=== PATIENT | female | born 1970 | race Caucasian/White ===

== ENCOUNTER 2019-12-14 12:28 | Emergency (ER) | payer OTHER ==
[~2019-12-14] VITALS: Ht 157.5 cm; Wt 81.7 kg
[~2019-12-14 12:28] MED LIST: EFFEXOR XR150 MG; HYDROCHLOROTHIA25 M1; LORTAB 7.5/5001 TA1 PO; POTASSIUM CHLO10 ME1
[2019-12-14] MEDS ORDERED: LEVO-T75 MCG PO (12:43)
[2019-12-14] MEDS ORDERED: LISINOPRIL2.5 MG PO (12:44)
[2019-12-14] MEDS ORDERED: NORCO 5-325 TA1 EAC1 PO (14:57)
[2019-12-14] MEDS ORDERED: MEDROLDOSEPACK PO (14:57)
[2019-12-14] MEDS ORDERED: MELOXICAM7.5 MG PO (14:57)
[2019-12-14 15:08] VITALS: BP 172/90
== END 2019-12-14 15:09 | disposition home or self-care (01) ==
LOC: M.ERS 12:28
DX: M54.32 Sciatica, left side (principal); E03.9 Hypothyroidism, unspecified

== ENCOUNTER 2020-11-15 19:47 | Emergency (ER) | payer OTHER ==
[~2020-11-15] VITALS: Ht 157.5 cm; Wt 78.5 kg
[~2020-11-15 19:47] MED LIST changes: +EFFEXOR XR75 MG PO; +LEVO-T75 MCG PO; +LISINOPRIL2.5 MG PO; +MEDROLDOSEPACK PO; +MELOXICAM7.5 MG PO; +NORCO 5-325 TA1 EAC1 PO; +PROBIOTIC1 EAC7 PO; +VITAMIN B-1100 M2 PO; +VITAMIN C500 M1 PO; +VITAMIN D3 COM1 EACH PO; +ZESTRIL30 MG PO
[2020-11-15] MEDS ORDERED: FLONASE 0.05%50 MCG NARES (19:59)
[2020-11-15 21:03] LABS: ABSOLUTE BASOPHILS 0.1 thou/uL (0.0-0.2); ABSOLUTE EOSINOPHILS 0.2 thou/uL (0.0-0.7); ABSOLUTE LYMPHOCYTES 1.7 thou/uL (0.8-5.3); ABSOLUTE MONOCYTES 0.6 thou/uL (0.0-1.2); ABSOLUTE NEUTROPHILS 5.7 thou/uL (1.6-8.1); BASOPHILS 0.6 %; EOSINOPHILS 1.9 %; HEMATOCRIT 41.6 % (37.0-47.0); HEMOGLOBIN 14.2 gm/dL (12.0-15.0); LYMPHOCYTES 21.2 %; MCH 32.1 pg (26.0-34.0); MCHC 34.1 g/dL (28.0-37.0); MCV 93.9 fL (80.0-100.0); MONOCYTES 7.2 %; MPV 6.9 fl. (7.2-11.1); NUCLEATED RBCS 0 /100WBC; PLATELET COUNT* 226 thou/uL (150-400); POLYS 69.1 %; RBC 4.43 mil/uL (4.20-5.00); RDW-CV 11.7 % (10.5-14.5); WBC 8.2 thou/uL (4.0-11.0)
[2020-11-15 21:39] VITALS: BP 120/61
== END 2020-11-15 21:39 | disposition home or self-care (01) ==
LOC: M.ERS 19:47
PROVIDERS: Physician Assistant
DX: R04.0 Epistaxis (principal); I10 Essential (primary) hypertension; Z98.890 Other specified postprocedural states

== ENCOUNTER 2021-02-10 15:50 | Emergency (ER) | payer OTHER ==
[~2021-02-10] VITALS: Ht 157.5 cm; Wt 79.4 kg
[~2021-02-10 15:50] MED LIST changes: +FLONASE 0.05%50 MCG NARES
[2021-02-10] MEDS ORDERED: NORVASC 2.5 MG2.5 M1 PO (15:59)
[2021-02-10] MEDS ORDERED: HYDROCODON-ACE1 EAC7 PO (17:17)
[2021-02-10 17:27] VITALS: BP 164/74
== END 2021-02-10 17:28 | disposition home or self-care (01) ==
LOC: M.ERS 15:50
DX: S39.011A Strain of muscle, fascia and tendon of abdomen, initial encounter (principal); K43.9 Ventral hernia without obstruction or gangrene; I10 Essential (primary) hypertension; Z98.890 Other specified postprocedural states; Z90.710 Acquired absence of both cervix and uterus; X58.XXXA Exposure to other specified factors, initial encounter; Y93.89 Activity, other specified; Y92.89 Other specified places as the place of occurrence of the external cause; Y99.8 Other external cause status